=== PATIENT | male | born 1970 | race Caucasian/White ===

== ENCOUNTER 2017-03-07 06:21 | Inpatient (IN) | payer OTHER ==
[~2017-03-07] VITALS: Ht 182.9 cm; Wt 122.0 kg
--- NOTE | 2017-03-07 06:42 | NUR ---
[facility] AND BEGAN TO FEEL GEN WEAKNESS ACCOMPANIED WITH CP. THE CP INCREASES WITH PALPATION AND INSPIRATION, /. AAOX3, SPEAKS CLEARLY WITH INNAPROPRIATE ANSWERS, UNAWARE OF EXACT BASELINE MENTAL STATUS, KNOW LOCATION AND NAME, UNAWARE OF CURRENT DAY. MEDICS REPORT PT WAS GIVEN ASPIRIN 324 AND NITRO 24 WHICH GAVE NO RELIEF. NO SOB, RESP EVEN AND UNLABORED. ABLE TO AMBULATE, WITH A SLOW STEADY GAIT. 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 DENIES ANY FURTHER COMPLAINTS.
--- NOTE | 2017-03-07 07:18 | NUR ---
REPORT GIVEN TO DARLIN BEAR FOR THIS PATIENT.
--- NOTE | 2017-03-07 07:22 | NUR ---
RECEIVED REPORT FROM YOBANY SAEED, PT IS RESTING, VSS.
[2017-03-07 07:24] LABS: BASOPHIL % 0.1 % (0-2)
[2017-03-07 07:28] LABS: PLATELET COUNT 73 x10^3mcL (130-400); RED CELL DISTRIBUTION WIDTH 14.9 % (11.5-14.5)
[2017-03-07 07:33] LABS: CARBON DIOXIDE 22.7 mmol/L (21-32); CHLORIDE SERUM 105 mmol/L (98-107); CREATININE SERUM 1.2 mg/dL (0.7-1.3); GFR1 > 60 mL/min; GLUCOSE SERUM 126 mg/dL (74-106); POTASSIUM SERUM 3.6 mmol/L (3.5-5.1); SODIUM SERUM 137 mmol/L (136-145)
[2017-03-07 07:44] LABS: ALBUMIN 2.3 g/dL (3.4-5.0); ALKALINE PHOSPHATASE 100 U/L (46-116); ALT/SGPT 30 U/L (16-63); AMYLASE 49 U/L (25-115); AST/SGOT 50 U/L (15-37); BILIRUBIN TOTAL 1.74 mg/dL (0.20-1.00); LIPASE 217 IU/L (73-393); MAGNESIUM 1.8 mg/dL (1.8-2.4); T4(THYROXINE) 7.6 ug/dL (4.7-13.3); TOTAL PROTEIN, SERUM 6.5 g/dL (6.4-8.2)
[2017-03-07 07:45] LABS: CHOLESTEROL 86 mg/dL (<200); HDL CHOLESTEROL 34 mg/dL (40-60)
[2017-03-07 08:09] LABS: UA SPECIFIC GRAVITY 1.025 (1.005-1.035); microscopic required? YES; urine erythrocyte NEGATIVE (NEGATIVE)
[2017-03-07 08:25] LABS: AMPHETAMINE QUAL UR NONE DETECTED (NEG <=1000)
[2017-03-07] MEDS ORDERED: TRAZODONE50 M1 PO (08:32)
[2017-03-07] MEDS ORDERED: NOR10T PO (08:32)
[2017-03-07] MEDS ORDERED: LASIX40 MG PO (08:33)
[2017-03-07] MEDS ORDERED: KEPPRA500 MG PO (08:33)
[2017-03-07] MEDS ORDERED: NEU300 PO (08:34)
[2017-03-07] MEDS ORDERED: CELEXA20 MG PO (08:34)
[2017-03-07] MEDS ORDERED: LACTULOSE10 GM/152 PO (08:35)
[2017-03-07] MEDS ORDERED: APAP500 MG PO (08:36)
[2017-03-07 09:20] VITALS: BP 112/61
--- NOTE | 2017-03-07 09:20 | NUR ---
RECEIVED PT VIA GUERNEY TRANSFER FROM ED. PT LETHARGIC, BUT WAS ABLE TO AMBULATE WITH ASSISTANCE FROM ERNEY TO BED, SHUFFLING GAIT, SWAYING BALANCE. ORIENTED TO PERSON AND PLACE. ON TELE # 31, SHOWING SR WITH HR 84. DENIES CHEST PAIN AT THIS TIME. FLAVIA RADIAL AND PEDAL PULSES PRESENT, NO EDEMA, CAP REFILL < 3 SECS. BUL / BLL CLEAR, CHEST RISING EVENLY, ON R/A SP02 91%; WAS PUT ON 2LNC, SPO2 WENT UP TO 96%. PT FELL ASLEEP AT THIS TIME, SNORING LOUDLY, AND WAS HARD TO AROUSE. ABD ROUND, SOFT, NON-TENDER, NORMOACTIVE BOWEL SOUNDS X 4 QUADS. UNABLE TO DETERMINE IF PT ABLE TO VOID FREELY AT THIS TIME. DRY SCABS TO LLE, NO DRAINAGE, WEDGER MACHINE. IV SITE AT [facility], RUNNING NS 100 ML/HR. SIDE RAILS UP X 2 WITH PADDING 2/2 HX SEIZURES. BED IN LOW POSITION, CALL LIGHT WITHIN REACH. WILL CONTINUE TO MONITOR.
--- NOTE | 2017-03-07 10:34 | NUR ---
AMENDMENT: PER CABLE OPERATOR DARLIN DODGE PT DID NOT RECEIVE TYLENOL 1GM PO THAT WAS RECORDED ON TRIAGE
[2017-03-07 13:08] VITALS: BP 114/69
--- NOTE | 2017-03-07 19:15 | NUR ---
PATIENT RECEIVED AWAKE, ALERT, AND ORIENTED X 4. NO DISTRESS NOTED. PATIENT DENIES SOB. PATIENT DENIES CHEST PAIN. PATIENT C/O GENERALIZED PAIN 01/27, WILL MEDICATE PER DOCTOR'S PRN ORDER. IV SITE TO LEFT AC, PATENT AND INTACT. IV FLUID INFUSING PER DOCTOR'S ORDER. BED IN LOWEST POSITION. CALL LIGHT WITHIN REACH. WILL CONTINUE TO MONITOR.
[2017-03-07 23:09] VITALS: BP 103/52
--- NOTE | 2017-03-08 00:26 | NUR ---
DR PETERSON NOTIFIED OF PATIENT'S RHYTHM CHANGE FROM SR TO JUNCTIONAL WITH DEPRESSED T. PATIENT IS ASYMPTOMATIC AT THIS TIME. WILL CONTINUE TO MONITOR.
[2017-03-08 05:05] LABS: BASOPHIL % 0.5 % (0-2)
--- NOTE | 2017-03-08 05:05 | NUR ---
PATIENT RESTED IN INTERVALS THROUGHOUT THE NIGHT. MEDICATED FOR PAIN WITH MORPHINE X 3 PER DOCTOR'S PRN ORDER. PAIN MANAGED THROUGHOUT THE NIGHT. SAFETY AND COMFORT MEASURES MAINTAINED. BED IN LOWEST POSITION. CALL LIGHT WITHIN REACH. WILL CONTINUE TO MONITOR AND ENDORSE TO NEXT SHIFT NURSE.
[2017-03-08 05:06] LABS: PLATELET COUNT 59 x10^3mcL (130-400); RED CELL DISTRIBUTION WIDTH 15.4 % (11.5-14.5)
[2017-03-08 05:16] LABS: CALCIUM 7.4 mg/dL (8.5-10.1); CARBON DIOXIDE 25.6 mmol/L (21-32); CHLORIDE SERUM 114 mmol/L (98-107); GFR1 > 60 mL/min; GLUCOSE SERUM 94 mg/dL (74-106); MAGNESIUM 1.8 mg/dL (1.8-2.4); PHOSPHOROUS 2.8 mg/dL (2.5-4.9); POTASSIUM SERUM 3.6 mmol/L (3.5-5.1); SODIUM SERUM 144 mmol/L (136-145)
[2017-03-08 05:35] VITALS: BP 109/58
--- NOTE | 2017-03-08 07:40 | NUR ---
RECEIVED PT IN BED, A/A/O X 4, CALM, COOPERATIVE. ON TELE # 47, SHOWING SR / SINUS ARRHYTHMIA WITH DEPRESSED T-WAVES, WITH HR 70, PT ASYMPTOMATIC AT THIS TIME. FLAVIA RADIAL AND PEDAL PULSES PRESENT, NO EDEMA, CAP REFILL < 3 SECS, SCD IN PLACE. BUL CLEAR, BLL DIM, CHEST RISING EVENLY, NO RESPIRATORY DISTRESS, ON R/A, SPO2 96%. ABD ROUND, SOFT, NON-TENDER, NORMOACTIVE BOWEL SOUNDS X 4 QUADS, LAST BM 03/07/17. VOIDS FREELY, NO DYSURIA. AMBULATES WITHOUT GAIT OR BALANCE IMPAIRMENT. SCABS ON LLE, NO DRAINAGE, JORGE. DENIES PAIN AT THIS TIME. IV SITE AT [facility], RUNNING NS 158 ML/HR. PADDED SIDE RAILS UP X 2, BED IN LOW POSITION, CALL LIGHT WITHIN REACH. WILL CONTINUE TO MONITOR.
[2017-03-08 09:40] VITALS: BP 112/53
[2017-03-08 09:49] VITALS: BP 109/58
--- NOTE | 2017-03-08 10:40 | NUR ---
DR ROGERS, RESIDENTS, CHARGE NURSE, AND ASSIGNED NURSE CAME IN TO SEE PT; MD DISCUSSED CARE PLAN FOR PT. PT STATED THAT HE WANTS TO SMOKE, AND WANTS TO KNOW WHEN HE IS GETTING DISCHARGED. MD OFFERED TO GIVE PT NICOTINE PATCHES AN ORDER, AND TOLD PT THAT PT HAS PNA, AND WILL BE GIVEN BETTER CARE HERE IF HE STAYS. PT VERBALIZED UNDERSTANDING.
[2017-03-08 13:57] VITALS: BP 103/63
--- NOTE | 2017-03-08 14:54 | NUR ---
PT STATED THAT HE WANTS TO LEAVE [facility] AND GO BACK TO [facility] TO APPRAISAL MANAGER HIS THINGS BECAUSE HE JUST SPOKE TO HIS WHO IS OUT OF STATE THAT SHE WILL BE PROCESSING A DIVORCE FOR THEM. 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 ROSE FROM [employer] NOTIFIED WELL, WHO CONTACTED [facility] TO ADVICE THEM OF PT'S RETURN TO APPRAISAL MANAGER HIS THINGS. PT THEN SIGNED AMA FORM WITH . IV SITE WAS D/C'D, NO BLEEDING, REDNESS, PAIN, OR DISCOMFORT. TELE MONITOR WAS REMOVED, AND RETURNED TO TELE STATION. ASKED PT IF THERE ARE ANY FAMILY MEMBERS AND/OR FRIENDS THAT CAN PICK HIM UP, AND HE REPLIED "NO". PT WAS THEN INSTRUCTED TO WAIT IN HIS ROOM UNTIL CAB ARRIVES TO PICK HIM UP AT THE LOBBY. PT WAS GIVEN NON-SKID SOCKS, AND ALL BELONGINGS WERE PACKED IN A PLASTIC BAG. PT DOES NOT HAVE CONTACT LENSES, HEARING AIDS, DENTURES, OR GLASSES.
--- NOTE | 2017-03-08 15:25 | NUR ---
ALL ID BANDS WERE REMOVED, THEN PT WAS ACCOMPANIED BY RN TO LOBBY TO WAIT FOR HIS CAB. INSTRUCTED [employer] ROBOTICIST TO KEEP AN EYE ON THE PT, AND FOR THE CAB. PT IS A/A/O X 4, CALM, COOPERATIVE. NO RESPIRATORY DISTRESS, PAIN, OR DISCOMFORT NOTED. AMBULATED WITHOUT GAIT OR BALANCE IMPAIRMENT.
== END 2017-03-08 15:25 | disposition left against medical advice (07) | DRG 137 ==
LOC: ED 06:21 → DU 08:05
PROVIDERS: Emergency Medicine; Family Medicine; ADMIT Family Medicine
DX: J69.0 Pneumonitis due to inhalation of food and vomit (principal); J96.01 Acute respiratory failure with hypoxia; N17.0 Acute kidney failure with tubular necrosis; G93.40 Encephalopathy, unspecified; E43 Unspecified severe protein-calorie malnutrition; E72.4 Disorders of ornithine metabolism; K74.60 Unspecified cirrhosis of liver; D69.6 Thrombocytopenia, unspecified; R07.9 Chest pain, unspecified; G40.909 Epilepsy, unspecified, not intractable, without status epilepticus; B19.20 Unspecified viral hepatitis C without hepatic coma; E11.9 Type 2 diabetes mellitus without complications; M06.9 Rheumatoid arthritis, unspecified; Z88.0 Allergy status to penicillin; I10 Essential (primary) hypertension; G62.9 Polyneuropathy, unspecified; E83.39 Other disorders of phosphorus metabolism; Z68.36 Body mass index [BMI] 36.0-36.9, adult; F17.200 Nicotine dependence, unspecified, uncomplicated
CPT/HCPCS: 36600; 83880; 94150; G0480; J1956; J2270; J3490; J7030; Q0092